=== PATIENT | male | born 1995 | race Caucasian/White ===

== ENCOUNTER 2017-05-13 15:34 | Emergency (ER) | payer MEDICARE, BC ==
--- NOTE | 2017-05-13 16:44 | EDM.PDOC ---
ED HPI GENERAL MEDICAL PROBLEM - General Chief Complaint: Cardiovascular Problem Stated Complaint: FAST RACING HEART Time Seen by Provider: 05/13/17 16:25 Source of Information: Reports: Patient, RN Notes Reviewed History Limitations: Reports: No Limitations - History of Present Illness INITIAL COMMENTS - FREE TEXT/NARRATIVE: 22-year-old gentleman presents emergency department today with complaint of palpitations, he states he's noticed palpitations on and off for the last couple weeks they do last short period time 1-2 minutes however this time it lasted for more than an hour he presented to the emergency department for evaluation. He's been unable to track his heart rate he does admit to having a family history of an enlarged heart he states he was worked up for that age 18 but he's not sure of the details. He is asymptomatic at this time - Related Data Allergies Allergy/AdvReac Type Severity Reaction Status Date / Time amoxicillin Allergy Indigestion Verified 05/13/17 15:51 Home Meds: Home Meds Dextroamphetamine/Amphetamine [Dextroamp-Amphet ER] 1 tab PO DAILY PRN 05/13/17 [History] lamoTRIgine [Lamotrigine] 50 mg PO BEDTIME 05/13/17 [History] Past Medical History Respiratory History: Reports: Asthma Gastrointestinal History: Reports: Other (See Below) Other Gastrointestinal History: reflux Musculoskeletal History: Reports: Other (See Below) Other Musculoskeletal History: fx hand Psychiatric History: Reports: ADHD, Anxiety, Depression, Hallucinations, Learning Disability, Schizophrenia Endocrine/Metabolic History: Reports: Obesity/BMI 30+ Dermatologic History: Reports: Psoriasis - Past Surgical History HEENT Surgical History: Reports: Tonsillectomy, Other (See Below) Other HEENT Surgeries/Procedures: wisdom teeth removed Social & Family History - Tobacco Use Smoking Status *Q: Current Every Day Smoker Years of Tobacco use: 8 Packs/Tins Daily: 1 Used Tobacco, but Quit: No Second Hand Smoke Exposure: Yes - Caffeine Use Caffeine Use: Reports: Coffee, Energy Drinks, Soda, Tea - Alcohol Use Days Per Week of Alcohol Use: 0 - Recreational Drug Use Recreational Drug Use: Yes Drug Use in Last 12 Months: Yes Recreational Drug Type: Reports: Marijuana/Hashish Recreational Drug Use Frequency: Rarely ED ROS GENERAL - Review of Systems Review Of Systems: See Below Constitutional: Reports: No Symptoms HEENT: Reports: No Symptoms Respiratory: Reports: No Symptoms Cardiovascular: Reports: Palpitations GI/Abdominal: Reports: No Symptoms : Reports: No Symptoms Musculoskeletal: Reports: No Symptoms Skin: Reports: No Symptoms ED EXAM, GENERAL - Physical Exam Exam: See Below Free Text/Narrative:: General: Male, not in any distress, alert and oriented x3 HEENT: head is atraumatic normocephalic, eyes pupils equal round reactive to light, sclera clear no conjunctivitis appreciated. Ears tympanic membranes clear and saucedo landmarks and light reflex are present bilaterally canals are clear. Nose no septal deviation, nares are clear, no blood present. Mouth mucosa is moist and pink no erythema or exudate noted in soft palate, tongue is midline uvula is midline, dentition is intact. Neck: Supple no thyromegaly no tracheal deviation. Nodes: Cervical nodes subclavicular nodes nontender no palpable lymphadenopathy noted. Lungs: clear to auscultation bilaterally with symmetrical respirations, no adventitious noise appreciated. CV: Regular rate and rhythm S1 and S2 appreciated no murmurs rubs or gallops noted. Abdomen: Soft, nontender, no palpable masses or organomegaly appreciated, no distention no guarding bowel sounds are present, . Neuro: Cranial nerves II through XII grossly intact Skin: Warm and dry, intact Extremities: No lower extremity edema appreciated, Course - Orders/Labs/Meds Orders: Active Orders 24 hr Category Date Time Status Cardiac Monitoring [RC] .As Directed Care 05/13/17 16:36 Active EKG Documentation Completion [RC] ASDIRECTED Care 05/13/17 16:37 Active Chest 2V [CR] Stat Exams 05/13/17 16:36 Taken EKG 12 Lead [EK] Stat Ther 05/13/17 16:36 Ordered Labs: Laboratory Tests 05/13/17 05/13/17 05/13/17 Range/Units 16:36 16:37 16:37 WBC 6.6 (4.5-11.0) K/uL RBC 5.31 (4.30-5.90) M/uL Hgb 14.7 (12.0-15.0) g/dL Hct 42.0 (40.0-54.0) % MCV 79 L (80-98) fL MCH 28 (27-31) pg MCHC 35 (32-36) % Plt Count 208 (150-400) K/uL Neut % (Auto) 65 (36-66) % Lymph % (Auto) 23 L (24-44) % [place] % (Auto) 10 H (2-6) % Eos % (Auto) 1 L (2-4) % Baso % (Auto) 1 (0-1) % Sodium 144 (140-148) mmol/L Potassium 4.0 (3.6-5.2) mmol/L Chloride 107 (100-108) mmol/L Carbon Dioxide 25 (21-32) mmol/L Anion Gap 11.7 (5.0-14.0) mmol/L BUN 13 (7-18) mg/dL Creatinine 1.0 (0.8-1.3) mg/dL Est Cr Clr Drug Dosing TNP Estimated GFR (MDRD) > 60 (>60) Glucose 86 (74-106) mg/dL Calcium 8.5 (8.5-10.1) mg/dL Total Bilirubin 0.5 (0.2-1.0) mg/dL AST 32 (15-37) U/L ALT 45 (12-78) U/L Alkaline Phosphatase 112 (46-116) U/L CK-MB (CK-2) 2.3 (0-3.6) mg/mL Troponin I < 0.017 (0.000-0.056) ng/mL Total Protein 6.8 (6.4-8.2) g/dL Albumin 3.8 (3.4-5.0) g/dL Globulin 3.0 (2.3-3.5) g/dL Albumin/Globulin Ratio 1.3 (1.2-2.2) TSH, Ultra Sensitive 1.555 (0.358-3.740) uIU/mL Departure - Departure Time of Disposition: 17:28 Disposition: Home, Self-Care 01 Condition: Good Clinical Impression: Palpitations Referrals: Walter Beth MD [Primary Care Provider] - Forms: ED Department Discharge Additional Instructions: Resume your regular medications, use your anxiety medication as prescribed, Please followup with your primary care provider in 3-5 days if not better, please call return to the emergency department with worsening of symptoms. - My Orders Last 24 Hours: My Active Orders 05/13/17 16:36 Cardiac Monitoring [RC] .As Directed Chest 2V [CR] Stat EKG 12 Lead [EK] Stat 05/13/17 16:37 EKG Documentation Completion [RC] ASDIRECTED - Assessment/Plan Last 24 Hours: My Active Orders 05/13/17 16:36 Cardiac Monitoring [RC] .As Directed Chest 2V [CR] Stat EKG 12 Lead [EK] Stat 05/13/17 16:37 EKG Documentation Completion [RC] ASDIRECTED Plan: Assessment Acuity = acute Site and laterality = panic attack Etiology = generalized anxiety Manifestations = none Location of injury = Home Lab values = CBC, CMP, troponin, EKG, chest x-ray all within normal limits Plan He remained asymptomatic while in the emergency department he does have medication for anxiety that he has not used he is going to implement that when he gets symptoms him follow-up with his primary care in 3-5 days if no improvement consider Holter monitor This note was dictated using [employer] voice recognition software please call with any questions on syntax or tu.
--- NOTE | 2017-05-14 09:54 | CR ---
Chest 2V HISTORY: No Clinical Info FINDINGS: Heart size within normal limits. Pulmonary vasculature within normal limits. No evidence fo r focal consolidation or cardiopulmonary process. There is irregularity at the distal right clavicle. This may be projectional only if symptomatic recommend dedicated views. IMPRESSION: No radiographic evidence for acute cardiopulmonary process.
== END 2017-05-13 17:40 | disposition home or self-care (01) ==
LOC: JP.ED 15:34
DX: R00.2 Palpitations (principal); F41.0 Panic disorder [episodic paroxysmal anxiety]; F41.1 Generalized anxiety disorder; F17.210 Nicotine dependence, cigarettes, uncomplicated; F90.9 Attention-deficit hyperactivity disorder, unspecified type; Z88.1 Allergy status to other antibiotic agents; Z79.899 Other long term (current) drug therapy; J45.909 Unspecified asthma, uncomplicated
CPT/HCPCS: 36415; 71046; 71046-26; 80053; 82553; 84443; 84484; 85025; 93005; 99284; 99285-25

== ENCOUNTER 2017-07-24 00:58 | Emergency (ER) | payer MEDICARE, BC ==
--- NOTE | 2017-07-24 01:27 | EDM.PDOC ---
ED HPI GENERAL MEDICAL PROBLEM - General Chief Complaint: General Stated Complaint: FEVER Time Seen by Provider: 07/24/17 01:20 Source of Information: Reports: Patient, Old Records, RN History Limitations: Reports: No Limitations - History of Present Illness INITIAL COMMENTS - FREE TEXT/NARRATIVE: 22 yo male with onset of fever 2 hrs ago. Found some woodticks crawling and attached tonight also. Has a mild cough without SOB. No rash. no dysuria. Emesis x one. Onset Date: 07/23/17 Duration: Hour(s): (2) Location: Reports: Generalized Quality: Reports: Ache Severity: Mild Improves with: Reports: None Worsens with: Reports: Other (? time) Context: Reports: Other (smoker?) Associated Symptoms: Reports: Cough, Fever/Chills, Headaches (mild), Nausea/ Vomiting (once). 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 (see below) (none) back pain Pain Score (Numeric/FACES): 8 - Related Data Allergies Allergy/AdvReac Type Severity Reaction Status Date / Time amoxicillin Allergy Indigestion Verified 05/13/17 15:51 Home Meds: Home Meds Dextroamphetamine/Amphetamine [Dextroamp-Amphet ER] 1 tab PO DAILY PRN 05/13/17 [History] lamoTRIgine [Lamotrigine] 50 mg PO BEDTIME 05/13/17 [History] Past Medical History Respiratory History: Reports: Asthma Gastrointestinal History: Reports: Other (See Below) Other Gastrointestinal History: reflux Musculoskeletal History: Reports: Other (See Below) Other Musculoskeletal History: fx hand Psychiatric History: Reports: ADHD, Anxiety, Depression, Hallucinations, Learning Disability, Schizophrenia Endocrine/Metabolic History: Reports: Obesity/BMI 30+ Dermatologic History: Reports: Psoriasis - Past Surgical History HEENT Surgical History: Reports: Tonsillectomy, Other (See Below) Other HEENT Surgeries/Procedures: wisdom teeth removed Social & Family History - Tobacco Use Smoking Status *Q: Current Every Day Smoker Years of Tobacco use: 6 Packs/Tins Daily: 1 - Caffeine Use Caffeine Use: Reports: Coffee, Soda, Tea - Recreational Drug Use Recreational Drug Use: No ED ROS GENERAL - Review of Systems Review Of Systems: See Below Constitutional: Reports: Fever HEENT: Reports: No Symptoms Respiratory: Reports: Cough. Denies: Shortness of Breath, Wheezing, Sputum, Hemoptysis Cardiovascular: Reports: No Symptoms Endocrine: Reports: No Symptoms GI/Abdominal: Reports: Abdominal Pain (mild epigastric), Vomiting (x one). Denies: Black Stool, Bloody Stool, Constipation, Diarrhea, Distension, Hematemesis, Nausea : Reports: No Symptoms Musculoskeletal: Reports: No Symptoms Skin: Reports: No Symptoms Neurological: Reports: No Symptoms ED EXAM, GENERAL - Physical Exam Exam: See Below Exam Limited By: No Limitations General Appearance: Alert, WD/WN, No Apparent Distress, Obese Eye Exam: Bilateral Eye: Normal Inspection Ears: Normal External Exam, Normal Canal, Hearing Grossly Normal, Normal TMs Ear Exam: Bilateral Ear: Auricle Normal, Canal Normal, TM normal Nose: Normal Inspection, Normal Mucosa, No Blood Throat/Mouth: Normal Inspection, Normal Lips, Normal Oropharynx, Normal Voice, No Airway Compromise Head: Atraumatic, Normocephalic Neck: Normal Inspection Respiratory/Chest: No Respiratory Distress, Lungs Clear, Normal Breath Sounds, No Accessory Muscle Use, Other (dry cough) Cardiovascular: Regular Rate, Rhythm, No Edema GI/Abdominal: Normal Bowel Sounds, Soft, No Distention, Tender (mild mid to epigastric tenderness.). No: Non-Tender Back Exam: Normal Inspection. No: CVA Tenderness (R), CVA Tenderness (L) Extremities: Normal Inspection, Normal Range of Motion, Non-Tender, No Pedal Edema Neurological: Alert, Oriented, CN II-XII Intact, Normal Cognition, No Motor/ Sensory Deficits Psychiatric: Normal Affect, Normal Mood Skin Exam: Warm, Dry, Intact, Normal Color, No Rash Course - Vital Signs Text/Narrative:: acetaminophen 1000 mg po Last Recorded V/S: Last Vital Signs Temp 38.3 C H 07/24/17 01:15 Pulse 110 H 07/24/17 01:15 Resp 18 07/24/17 01:15 BP 140/89 07/24/17 01:15 Pulse Ox 100 07/24/17 01:15 - Orders/Labs/Meds Orders: Active Orders 24 hr Category Date Time Status INFLUENZA A+B AG SCREEN [RM] Stat Lab 07/24/17 01:37 Ordered UA W/MICROSCOPIC [URIN] Stat Lab 07/24/17 01:32 Ordered Labs: Laboratory Tests 07/24/17 07/24/17 Range/Units 01:32 01:35 WBC 7.6 (4.5-11.0) K/uL RBC 5.83 (4.30-5.90) M/uL Hgb 16.4 H (12.0-15.0) g/dL Hct 47.0 (40.0-54.0) % MCV 81 (80-98) fL MCH 28 (27-31) pg MCHC 35 (32-36) % Plt Count 181 (150-400) K/uL Urine Color Yellow Urine Appearance Clear Urine pH 5.0 (4.5-8.0) Ur Specific [place] 1.020 (1.008-1.030) Urine Protein Negative (NEGATIVE) mg/dL Urine Glucose (UA) Normal (NEGATIVE) mg/dL Urine Ketones 15 H (NEGATIVE) mg/dL Urine Occult Blood Negative (NEGATIVE) Urine Nitrite Negative (NEGAITVE) Urine Bilirubin Small (NEGATIVE) Urine Urobilinogen 4 (NORMAL) mg/dL Ur Leukocyte Esterase Negative (NEGATIVE) Urine RBC 0-5 (0-5) Urine WBC 0-5 (0-5) Ur Epithelial Cells Rare Amorphous Sediment Not seen Urine Bacteria Few Urine Mucus Not seen Meds: Medications Discontinued Medications Generic Name Dose Route Start Last Admin Trade Name Freq PRN Reason Stop Dose Admin Acetaminophen 1,000 mg 07/24/17 01:31 07/24/17 01:35 Tylenol Extra Strength PO 07/24/17 01:32 1,000 mg ONETIME ONE Administration Departure - Departure Time of Disposition: 02:05 Disposition: Home, Self-Care 01 Condition: Good Clinical Impression: Viral syndrome - Discharge Information Referrals: Walter Beth MD [Primary Care Provider] - Forms: ED Department Discharge - My Orders Last 24 Hours: My Active Orders 07/24/17 01:32 UA W/MICROSCOPIC [URIN] Stat 07/24/17 01:37 INFLUENZA A+B AG SCREEN [RM] Stat - Assessment/Plan Last 24 Hours: My Active Orders 07/24/17 01:32 UA W/MICROSCOPIC [URIN] Stat 07/24/17 01:37 INFLUENZA A+B AG SCREEN [RM] Stat
[2017-07-24] MEDS ORDERED: Acetaminophen 500 MG Tab PO ONE (01:31)
== END 2017-07-24 02:13 | disposition home or self-care (01) ==
LOC: JP.ED 00:58
DX: B34.9 Viral infection, unspecified (principal); F17.210 Nicotine dependence, cigarettes, uncomplicated; F41.9 Anxiety disorder, unspecified; F32.9 Major depressive disorder, single episode, unspecified; J45.909 Unspecified asthma, uncomplicated; Z79.899 Other long term (current) drug therapy; Z88.1 Allergy status to other antibiotic agents
CPT/HCPCS: 36415; 81001; 85027; 87804; 99284; A9270

== ENCOUNTER 2017-07-26 21:38 | Emergency (ER) | payer MEDICARE, BC ==
[2017-07-26] MEDS ORDERED: Albuterol 0.083% 2.5 MG/3 ML Neb Soln NEB ONE (22:01)
--- NOTE | 2017-07-26 22:07 | EDM.PDOC ---
ED HPI GENERAL MEDICAL PROBLEM - General Chief Complaint: Respiratory Problem Stated Complaint: COUGH, CHEST GETTING WORSE Time Seen by Provider: 07/26/17 21:50 Source of Information: Reports: Patient, Old Records, RN History Limitations: Reports: No Limitations - History of Present Illness INITIAL COMMENTS - FREE TEXT/NARRATIVE: 22 yo male presents with a frequent cough. Thinks he has intermittent fevers. Is a smoker. Cough is non-productive. Also has a blister on the palm of his L hand with some surrounding erythema. Is not sure how he got the blister. Is not sure if the redness around it is getting worse or not. This blister appeared yesterday. Onset: Gradual Onset Date: 07/25/17 Duration: Day(s): (1+), Constant Location: Reports: Chest, Upper Extremity, Left Quality: Reports: Other (no pain) Severity: Moderate (cough) Improves with: Reports: Rest Worsens with: Reports: Other (exercise, or breathing deeply.) Context: Reports: Other (smoker) Associated Symptoms: Reports: Cough. 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 (see below) (none) Epigastric Pain Score (Numeric/FACES): 9 - Related Data Allergies Allergy/AdvReac Type Severity Reaction Status Date / Time amoxicillin Allergy Indigestion Verified 07/26/17 21:53 Home Meds: Home Meds Dextroamphetamine/Amphetamine [Dextroamp-Amphet ER] 30 mg PO DAILY PRN 05/13/17 [History] lamoTRIgine [Lamotrigine] 50 mg PO BEDTIME 05/13/17 [History] Past Medical History Respiratory History: Reports: Asthma Gastrointestinal History: Reports: Other (See Below) Other Gastrointestinal History: reflux Musculoskeletal History: Reports: Other (See Below) Other Musculoskeletal History: fx hand Psychiatric History: Reports: ADHD, Anxiety, Depression, Hallucinations, Learning Disability, Schizophrenia Endocrine/Metabolic History: Reports: Obesity/BMI 30+ Dermatologic History: Reports: Psoriasis - Past Surgical History HEENT Surgical History: Reports: Tonsillectomy, Other (See Below) Other HEENT Surgeries/Procedures: wisdom teeth removed Social & Family History - Caffeine Use Caffeine Use: Reports: Coffee, Soda, Tea ED ROS GENERAL - Review of Systems Review Of Systems: See Below Constitutional: Reports: No Symptoms HEENT: Reports: No Symptoms Respiratory: Reports: Cough. Denies: Shortness of Breath, Wheezing, Pleuritic Chest Pain, Sputum, Hemoptysis Cardiovascular: Reports: No Symptoms GI/Abdominal: Reports: No Symptoms : Reports: No Symptoms Musculoskeletal: Reports: No Symptoms Skin: Reports: Other (blister on L palm w/some redness around it.) ED EXAM, GENERAL - Physical Exam Exam: See Below Exam Limited By: No Limitations General Appearance: Alert, WD/WN, No Apparent Distress Eye Exam: Bilateral Eye: Normal Inspection Ears: Normal External Exam, Normal Canal, Hearing Grossly Normal Ear Exam: Bilateral Ear: Auricle Normal, Canal Normal Nose: Normal Inspection, Normal Mucosa, No Blood Throat/Mouth: Normal Inspection, Normal Lips, Normal Oropharynx, Normal Voice, No Airway Compromise Head: Atraumatic, Normocephalic Neck: Normal Inspection, Supple, Non-Tender Respiratory/Chest: No Respiratory Distress, No Accessory Muscle Use, Wheezing ( faint) Cardiovascular: Regular Rate, Rhythm Extremities: Normal Inspection Neurological: Alert, Oriented, CN II-XII Intact, Normal Cognition, No Motor/ Sensory Deficits Psychiatric: Normal Affect, Normal Mood Skin Exam: Warm, Dry, Intact, Other (intact blister on the L palm ~ 0.5 cm with another 0.4 cm of surrounding erythema) Course - Vital Signs Text/Narrative:: Albuterol neb-no benefit Prep'd his hand blister with betadine, alcohol. Then popped the blister with a # 18 needle to make sure this was not a pustule. Fluid was colorless like water. Last Recorded V/S: Last Vital Signs Temp 37.1 C 07/26/17 21:55 Pulse 119 H 07/26/17 21:55 Resp 18 07/26/17 21:55 BP 130/96 H 07/26/17 21:55 Pulse Ox 95 07/26/17 21:55 - Orders/Labs/Meds Orders: Active Orders 24 hr Category Date Time Status RT Aerosol Therapy [RC] ASDIRECTED Care 07/26/17 22:01 Active CBC W/O DIFF,HEMOGRAM [HEME] Stat Lab 07/26/17 21:58 Ordered Albuterol [Proventil Neb Soln] Med 07/26/17 22:01 Once 2.5 mg NEB ONETIME ONE Medication Orders Albuterol (Proventil Neb Soln) 2.5 mg NEB ONETIME ONE Stop: 07/26/17 22:02 Meds: Medications Generic Name Dose Route Start Last Admin Trade Name Hectorq PRN Reason Stop Dose Admin Albuterol 2.5 mg 07/26/17 22:01 Proventil Neb Soln NEB 07/26/17 22:02 ONETIME ONE Departure - Departure Time of Disposition: 22:36 Disposition: Home, Self-Care 01 Condition: Good Clinical Impression: Viral URI with cough Hand blister Qualifiers: Encounter type: initial encounter Laterality: left Qualified Code(s): S60.522A - Blister (nonthermal) of left hand, initial encounter - Discharge Information Referrals: Walter Beth MD [Primary Care Provider] - - My Orders Last 24 Hours: My Active Orders 07/26/17 21:58 CBC W/O DIFF,HEMOGRAM [HEME] Stat 07/26/17 22:01 RT Aerosol Therapy [RC] ASDIRECTED Albuterol [Proventil Neb Soln] 2.5 mg NEB ONETIME ONE - Assessment/Plan Last 24 Hours: My Active Orders 07/26/17 21:58 CBC W/O DIFF,HEMOGRAM [HEME] Stat 07/26/17 22:01 RT Aerosol Therapy [RC] ASDIRECTED Albuterol [Proventil Neb Soln] 2.5 mg NEB ONETIME ONE
== END 2017-07-26 22:46 | disposition home or self-care (01) ==
LOC: JP.ED 21:38
DX: S60.522A Blister (nonthermal) of left hand, initial encounter (principal); J06.9 Acute upper respiratory infection, unspecified; J45.909 Unspecified asthma, uncomplicated; F90.9 Attention-deficit hyperactivity disorder, unspecified type; F41.9 Anxiety disorder, unspecified; F32.9 Major depressive disorder, single episode, unspecified; E66.9 Obesity, unspecified; Z79.899 Other long term (current) drug therapy; Z88.1 Allergy status to other antibiotic agents; X58.XXXA Exposure to other specified factors, initial encounter
CPT/HCPCS: 36415; 85027; 94640; 99285-25

== ENCOUNTER 2019-12-09 16:16 | Emergency (ER) | payer BC, MEDICAID, MEDICARE ==
--- NOTE | 2019-12-09 17:52 | EDM.PDOC ---
ED HPI GENERAL MEDICAL PROBLEM - General Chief Complaint: Head Injury Stated Complaint: HIT HEAD Time Seen by Provider: 12/09/19 17:15 Source of Information: Reports: Patient History Limitations: Reports: No Limitations - History of Present Illness INITIAL COMMENTS - FREE TEXT/NARRATIVE: 24-year-old male sent in from the clinic for a head CT due to a head injury 2 days ago. Apparently 2 days ago he bumped his head hard while under a counter, no loss of consciousness but did develop a bump and since that time is had some nausea, one episode of emesis, sore throat, and tingling in his right arm. He called the clinic and because he had "3 symptoms of COVID", they directed him to the emergency room to get tested for COVID and get a head CT. He has a headache. He was working today and felt like he could not "walk right". Onset: Sudden (Head injury was sudden 2 days ago) Associated Symptoms: Reports: Headaches, Nausea/Vomiting (1 episode of emesis). Denies: Confusion, Diaphoresis Head Pain Score (Numeric/FACES): 4 - Related Data Allergies Allergy/AdvReac Type Severity Reaction Status Date / Time amoxicillin Allergy Indigestion Verified 12/09/19 16:50 Home Meds: Home Meds traZODone HCl [Trazodone HCl] 50 mg PO BEDTIME PRN 12/09/19 [History] Past Medical History HEENT History: Reports: None Respiratory History: Reports: Asthma Gastrointestinal History: Reports: Other (See Below) Other Gastrointestinal History: reflux Musculoskeletal History: Reports: Other (See Below) Other Musculoskeletal History: fx hand Psychiatric History: Reports: ADHD, Anxiety, Depression, Hallucinations, Learning Disability, Schizophrenia Endocrine/Metabolic History: Reports: Obesity/BMI 30+ Dermatologic History: Reports: Psoriasis - Past Surgical History Head Surgeries/Procedures: Reports: None HEENT Surgical History: Reports: Tonsillectomy, Other (See Below) Other HEENT Surgeries/Procedures: wisdom teeth removed Respiratory Surgical History: Reports: None GI Surgical History: Reports: None Endocrine Surgical History: Reports: None Dermatological Surgical History: Reports: None Social & Family History - Tobacco Use Smoking Status *Q: Former Smoker Years of Tobacco use: 6 Packs/Tins Daily: 1 Used Tobacco, but Quit: Yes Month/Year Tobacco Last Used: 2018 - Caffeine Use Caffeine Use: Reports: Coffee, Energy Drinks, Soda, Tea - Alcohol Use Days Per Week of Alcohol Use: 7 Number of Drinks Per Day: 2 Total Drinks Per Week: 14 - Recreational Drug Use Recreational Drug Use: No ED ROS GENERAL - Review of Systems Review Of Systems: See Below Constitutional: Reports: Malaise. Denies: Fever, Chills HEENT: Reports: Throat Pain. Denies: Vision Change Respiratory: Denies: Shortness of Breath Cardiovascular: Denies: Chest Pain, Palpitations GI/Abdominal: Reports: Nausea, Vomiting Neurological: Reports: Headache. Denies: Confusion, Dizziness ED EXAM, HEAD INJURY - Physical Exam Exam: See Below Exam Limited By: No Limitations General Appearance: Alert, No Apparent Distress, Other (Patient looks completely fine) Head: Atraumatic Eyes: Bilateral Eye: Normal Inspection Ears: Normal TMs Neck: Full Range of Motion Respiratory: No Respiratory Distress, Lungs Clear Extremities: Normal Inspection Neurologic: No Motor/Sensory Deficits, Normal Mood/Affect, Oriented x 3 Skin: Normal Color, Warm/Dry - Duke Coma Score Best Eye Response ([place]): (4) Open Spontaneously Best Verbal Response ([place]): (5) Oriented Best Motor Response ([place]): (6) Obeys Commands Course - Vital Signs Last Recorded V/S: Last Vital Signs Temp 98.1 F 12/09/19 16:49 Pulse 87 12/09/19 16:49 Resp 16 12/09/19 16:49 BP 127/95 H 12/09/19 16:49 Pulse Ox 97 12/09/19 16:49 - Orders/Labs/Meds Orders: Active Orders 24 hr Category Date Time Status CORONAVIRUS COVID-19, DONNY Stat Lab 12/09/19 18:22 Received - Re-Assessments/Exams Free Text/Narrative Re-Assessment/Exam: 12/10/19 08:20 Exam is completely normal head CT is negative. A COVID test was obtained and patient will be informed of the result. He does possibly have some mild concussion symptoms. Information was given regarding concussion syndrome. Departure - Departure Time of Disposition: 18:23 Disposition: Home, Self-Care 01 Clinical Impression: Concussion Qualifiers: Encounter type: initial encounter Loss of consciousness presence/duration: without LOC Qualified Code(s): S06.0X0A - Concussion without loss of consciousness, initial encounter - Discharge Information Instructions: Concussion, Adult, [id number] Referrals: Walter Beth MD [Primary Care Provider] - Forms: ED Department Discharge Care Plan Goals: Increase activity as tolerated, Tylenol or ibuprofen may be helpful for headache. Consider rechecking in 4 to 5 days if not improving satisfactorily. Sepsis Event Note (ED) - Evaluation Sepsis Screening Result: No Definite Risk - My Orders Last 24 Hours: My Active Orders 12/09/19 18:22 CORONAVIRUS COVID-19, DONNY Stat - Assessment/Plan Last 24 Hours: My Active Orders 12/09/19 18:22 CORONAVIRUS COVID-19, DONNY Stat
--- NOTE | 2019-12-09 18:30 | CRLCT ---
INDICATION: Head injury. Right arm paresthesias. Nausea TECHNIQUE: CT head without contrast. COMPARISON: None available FINDINGS: The ventricles and sulci are within normal limits. There is no mass effect or midline shift. There is no loss of saucedo-white differentiation. There is no evidence of an acute intracranial hemorrhage. No acute calvarial fracture is seen. There is minor scalp swelling at the vertex. There is mild focal mucosal thickening in the left frontal sinus. The mastoid air cells are clear. The visualized orbits are within normal limits. IMPRESSION: No evidence of an acute intracranial hemorrhage, mass effect or loss of saucedo-white differentiation. Dictated by Aureliano Davis MD @ 12/09/2019 6:28:55 PM Please note that all CT scans at this facility use dose modulation, iterative reconstruction, and/or weight-based dosing when appropriate to reduce radiation dose to as low as reasonably achievable. Dictated by: Aureliano Davis MD @ 12/09/2019 18:29:40 (Electronically Signed)
== END 2019-12-09 18:24 | disposition home or self-care (01) ==
LOC: JP.ED 16:16
DX: S06.0X0A Concussion without loss of consciousness, initial encounter (principal); J45.909 Unspecified asthma, uncomplicated; E66.9 Obesity, unspecified; Z68.35 Body mass index [BMI] 35.0-35.9, adult; Z88.1 Allergy status to other antibiotic agents; Z87.891 Personal history of nicotine dependence; Z20.828 Contact with and (suspected) exposure to other viral communicable diseases; W22.8XXA Striking against or struck by other objects, initial encounter
CPT/HCPCS: 70450; 99284-25; U0002

== ENCOUNTER 2022-04-28 19:12 | Emergency (ER) | payer OTHER, MEDICAID ==
[2022-04-28] MEDS ORDERED: Diphtheria,Pertussis(Acell),Tetanus Vaccine 0.5 ML Syringe IM ONE (19:51)
== END 2022-04-28 21:13 | disposition home or self-care (01) ==
LOC: JP.ED 19:12
DX: S61.211A Laceration without foreign body of left index finger without damage to nail, initial encounter (principal); E66.9 Obesity, unspecified; Z68.27 Body mass index [BMI] 27.0-27.9, adult; Z88.0 Allergy status to penicillin; Z91.013 Allergy to seafood; Z23 Encounter for immunization; W26.0XXA Contact with knife, initial encounter; Y99.0 Civilian activity done for income or pay
CPT/HCPCS: 12001; 90471; 90715; 99282-25